=== PATIENT | male | born 1980 | race Hispanic/Latino ===

== ENCOUNTER 2017-01-30 14:08 | Emergency (ER) | payer OTHER ==
[~2017-01-30] VITALS: Ht 167.6 cm; Wt 79.4 kg
[~2017-01-30 14:08] MED LIST: FIORICET 50-301 EACH PO; JOCK ITCH14.2 GM TOP
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
[2017-01-30 15:07] LABS: ABSOLUTE BASOPHIL COUNT 0 /CUMM (0.0-0.2); ABSOLUTE EOSINOPHIL COUNT 0 /CUMM (0.0-0.7); ABSOLUTE LYMPH COUNT 1.7 /CUMM (1.2-3.4); ABSOLUTE MONOCYTE COUNT 0.8 /CUMM (0.10-0.60); BASOPHIL % 0.1 % (0.0-2.0); EOSINOPHIL % 0 % (0-5); GRANULOCYTE % 86.4 % (42.2-75.2); HEMATOCRIT 44.2 % (42-52); MEAN CORPUSCULAR HGB CONC 33.7 G/DL (33.0-37.0); MEAN PLATELET VOLUME 7.4 FL (7.4-10.4); PLATELET COUNT 306 /CUMM (130-400); RBC DISTRIBUTION WIDTH 13.7 % (11.5-14.5); WHITE BLOOD CELL COUNT 18.5 /CUMM (4.8-10.8)
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
[2017-01-30] MEDS ORDERED: CYCLOBENZAPRINE10 M1 PO (17:12)
[2017-01-30] MEDS ORDERED: NAPROSYN500 M1 PO (17:12)
[2017-01-30 17:37] VITALS: BP 119/65
== END 2017-01-30 17:48 ==
LOC: ERH 14:08
PROVIDERS: Physician Assistant
DX: S09.90XA Unspecified injury of head, initial encounter (principal); S29.9XXA Unspecified injury of thorax, initial encounter; S83.92XA Sprain of unspecified site of left knee, initial encounter; S46.912A Strain of unspecified muscle, fascia and tendon at shoulder and upper arm level, left arm, initial encounter; S00.81XA Abrasion of other part of head, initial encounter; F12.10 Cannabis abuse, uncomplicated; V48.6XXA Car passenger injured in noncollision transport accident in traffic accident, initial encounter
CPT/HCPCS: 73030-LT; 73562-LT; 74177; 80307; 90471; 90714; G0480